=== PATIENT | female | born 1990 | race African-American/Black ===

== ENCOUNTER 2019-04-04 10:43 | Emergency (ER) | payer MEDICAID, MEDICARE ==
[~2019-04-04] VITALS: Ht 167.6 cm; Wt 55.0 kg
[2019-04-04 10:51] VITALS: BP 100/55
== END 2019-04-04 11:55 | disposition left against medical advice (07) ==
LOC: ER 10:43
DX: Z53.21 Procedure and treatment not carried out due to patient leaving prior to being seen by health care provider (principal)